=== PATIENT | male | born 1955 | race Caucasian/White ===

== ENCOUNTER → 2017-01-01 | Outpatient (CLI) | payer MEDICARE ==
[~2017-01-01] MED LIST: ASPIRIN EC81 MG PO; CATAPRES 0.1MG0.1 MG PO; CEPHALEXIN500 M1 PO; COREG 3.125M3.125 MG PO; DIAZEPAM10 MG PO; GABAPENTIN400 MG PO; GLUCOTROL5 MG PO; LIPITOR TAB 2020 MG PO; LISINOPRIL-HCT1 EAC2 PO; METFORMIN HCL1000 MG PO; NORVASC 5 MG TAB5 MG PO; PERCOCET 10-321 EACH PO; PREVACID30 MG PO; VITAMIN B-121000 MC3 PO; ZANAFLEX 4 MG TA4 MG PO
== END ==
LOC: EMI 12-31 08:15
DX: R51 Headache (principal); R20.2 Paresthesia of skin; R90.89 Other abnormal findings on diagnostic imaging of central nervous system; M89.8X9 Other specified disorders of bone, unspecified site
CPT/HCPCS: 70551